=== PATIENT | male | born 1970 | race African-American/Black ===

== ENCOUNTER 2016-12-05 23:02 | Emergency (ER) | payer MEDICAID, OTHER ==
[~2016-12-05] VITALS: Ht 175.3 cm; Wt 73.0 kg
[2016-12-06 01:16] VITALS: BP 140/87
== END 2016-12-06 01:32 | disposition home or self-care (01) ==
LOC: ER 23:02
DX: H66.92 Otitis media, unspecified, left ear (principal); B99.8 Other infectious disease; H10.89 Other conjunctivitis; F12.10 Cannabis abuse, uncomplicated
CPT/HCPCS: 99283

== ENCOUNTER 2017-02-28 21:46 | Emergency (ER) | payer MEDICAID, OTHER ==
[~2017-02-28] VITALS: Ht 170.2 cm; Wt 70.0 kg
[2017-02-28] MEDS ORDERED: ONDANSETRON HCL 4MG/2ML VIAL IV STA (22:59)
[2017-02-28] MEDS ORDERED: SODIUM CHLORIDE 0.9% 1,000 ML IV ONE (22:59)
[2017-02-28 23:18] LABS: BASOPHILS % 0.6 % (0.0-2.0); EOSINOPHILS % 0.5 % (0.0-5.0); HEMATOCRIT. 48.8 % (42.0-52.0); HEMOGLOBIN. 16.5 g/dL (14.0-18.0); LYMPHOCYTES % 33.2 % (20.0-50.0); MEAN CORPUSCULAR HEMOGLOBIN 28.8 pg (28.0-32.0); MEAN PLATELET VOLUME 8.2 fl (7.4-10.4); MONOCYTES % 5.7 % (2.0-8.0); PLATELET 236 x1000/uL (130-400); RED BLOOD CELL COUNT 5.74 mill/uL (4.7-6.1); RED CELL DISTRIBUTION WIDTH 13.5 % (11.6-14.6)
[2017-02-28 23:26] LABS: CHLORIDE 100 mEq/L (98-107)
[2017-02-28 23:36] LABS: CARBON DIOXIDE 26 mEq/L (21-32)
[2017-02-28 23:48] LABS: ETHANOL BLOOD 353 mg/dL
[2017-03-01 01:24] LABS: *AMPHETAMINES SCREEN URINE NEGATIVE (NEGATIVE); *BARBITURATES SCREEN URINE NEGATIVE (NEGATIVE); *BENZODIAZEPINES SCREEN URINE NEGATIVE (NEGATIVE); *COCAINE SCREEN URINE NEGATIVE (NEGATIVE); CANNABINOID URINE SCREEN PRESUMTIVE POSITIVE (NEGATIVE); METHADONE URINE SCREEN NEGATIVE (NEGATIVE); OPIATES URINE SCREEN NEGATIVE (NEGATIVE); PHENCYCLIDINE URINE SCREEN NEGATIVE (NEGATIVE)
[2017-03-01 05:00] VITALS: BP 129/82
== END 2017-03-01 06:36 | disposition home or self-care (01) ==
LOC: ER 21:47
DX: F10.129 Alcohol abuse with intoxication, unspecified (principal); Y90.8 Blood alcohol level of 240 mg/100 ml or more
CPT/HCPCS: 36415; 70450; 80053; 80305; 85025; 93005; 96361; 96374; 99291; G0482; J2405; J7030; Z7610